=== PATIENT | female | born 1990 | race Caucasian/White ===

== ENCOUNTER 2017-05-27 14:53 | Emergency (ER) | payer BC, OTHER ==
[~2017-05-27] VITALS: Ht 172.7 cm; Wt 59.0 kg
[2017-05-27 15:22] LABS: URINE BILIRUBIN NEGATIVE (Negative); URINE BLOOD 1+ (Negative); URINE CLARITY SL CLOUDY; URINE COLOR YELLOW; URINE GLUCOSE-RANDOM* NEGATIVE (Negative); URINE KETONES TRACE (Negative); URINE NITRITE-REFLEX NEGATIVE (Negative); URINE PROTEIN (DIPSTICK) TRACE (Negative); URINE SPECIFIC GRAVITY 1.025 (1.005-1.035); URINE UROBILINOGEN 0.2 E.U./dl (0.2-1.0)
[2017-05-27 15:24] LABS: URINE LEUKOCYTES-REFLEX 1+ (Negative)
[2017-05-27 15:48] LABS: CASTS None Seen /LPF (None Seen); MUCUS 0-3 Light strn/LPF (None Seen); SQUAMOUS 4-10 Moderate /LPF (0-3); URINE WBC-REFLEX 6-15 Few /HPF (0-5)
[2017-05-27 15:49] LABS: BACTERIA-REFLEX 1-9 Few /HPF (None Seen); CRYSTALS None Seen /LPF (None Seen); URINE RBC 3-10 Few /HPF (0-2)
[2017-05-27] MEDS ORDERED: VALACYCLOVIR1000 MG PO (16:25)
[2017-05-27] MEDS ORDERED: FLAGYL500 MG PO (16:25)
[2017-05-30 10:27] LABS: HSV PCR SOURCE BLISTER
[2017-05-30 19:11] LABS: HSV 1 DNA Positive (Negative); HSV 2 DNA Negative (Negative)
== END 2017-05-27 16:33 | disposition home or self-care (01) ==
LOC: ER 14:53
PROVIDERS: Physician Assistant
DX: N76.0 Acute vaginitis (principal); B96.89 Other specified bacterial agents as the cause of diseases classified elsewhere; A60.04 Herpesviral vulvovaginitis; F17.210 Nicotine dependence, cigarettes, uncomplicated; Z20.2 Contact with and (suspected) exposure to infections with a predominantly sexual mode of transmission